=== PATIENT | female | born 1955 | race Caucasian/White ===

== ENCOUNTER 2017-04-22 14:31 | Emergency (ER) | payer SELFPAY ==
[~2017-04-22] VITALS: Ht 162.6 cm; Wt 79.4 kg
[~2017-04-22 14:31] MED LIST: AUGMENTIN 875-1 EACH PO; CLONAZEPAM1 MG PO; NORCO 5-325 TA1 EACH PO; PEPCID20 MG PO; PREDNISONE20 MG PO; VENLAFAXINE HCL75 MG PO; ZITHROMAX250 MG PO; ZOFRAN4 MG PO
[2017-04-22] MEDS ORDERED: NORCO 5-325 TA1 EACH PO (15:21)
== END 2017-04-22 15:43 | disposition home or self-care (01) ==
LOC: ED 14:31
DX: M54.41 Lumbago with sciatica, right side (principal); F32.9 Major depressive disorder, single episode, unspecified; Z90.49 Acquired absence of other specified parts of digestive tract; Z79.899 Other long term (current) drug therapy
CPT/HCPCS: 99283

== ENCOUNTER 2017-12-07 14:24 | Emergency (ER) | payer SELFPAY ==
[~2017-12-07] VITALS: Ht 165.1 cm; Wt 69.0 kg
[2017-12-07] MEDS ORDERED: MIRAPEX1 MG PO (14:51)
[2017-12-07] MEDS ORDERED: MELOXICAM15 MG PO (14:52)
== END 2017-12-07 19:20 | disposition home or self-care (01) ==
LOC: ED 14:24
DX: S80.01XA Contusion of right knee, initial encounter (principal); W50.0XXA Accidental hit or strike by another person, initial encounter; Z79.899 Other long term (current) drug therapy; Y92.89 Other specified places as the place of occurrence of the external cause; Y99.0 Civilian activity done for income or pay
CPT/HCPCS: 73560; 99283

== ENCOUNTER 2019-03-26 14:51 | Emergency (ER) | payer SELFPAY ==
[~2019-03-26] VITALS: Ht 165.1 cm; Wt 77.1 kg
[~2019-03-26 14:51] MED LIST changes: +ASPIR-LOW81 MG PO; +GABAPENTIN300 MG PO; +HYDROCODON-ACE1 EA11 PO; +MELOXICAM15 MG PO; +MIRAPEX1 MG PO; +MULTIVITAMINS1 EAC8 PO; +NEURONTIN300 MG PO; +OMEPRAZOLE20 M1 PO
[2019-03-26] MEDS ORDERED: CYCLOBENZAPRINE10 MG PO (19:03)
[2019-03-26] MEDS ORDERED: NORCO 5-325 TA1 EACH PO (19:03)
== END 2019-03-26 19:48 | disposition home or self-care (01) ==
LOC: ED 14:51
DX: R10.11 Right upper quadrant pain (principal); F32.9 Major depressive disorder, single episode, unspecified; Z79.899 Other long term (current) drug therapy; Z79.82 Long term (current) use of aspirin
CPT/HCPCS: 74177; 80053; 81001; 83690; 85025; 99284-25; J2270; J2405; Q9967